=== PATIENT | male | born 1970 | race Caucasian/White ===

== ENCOUNTER 2025-06-04 14:44 | Outpatient (CLI) | payer MEDICAID ==
[2025-06-04] MEDS ORDERED: ALBUTEROL SULF 2.5 MG/0.5ML(0.5%) NEB SOLN ONE (15:07)
== END 2025-06-04 17:00 | disposition home or self-care (01) ==
LOC: XYW 14:44
PROVIDERS: ATTEND Internal Medicine Pulmonary Disease
DX: J44.9 Chronic obstructive pulmonary disease, unspecified (principal); R06.09 Other forms of dyspnea; R06.02 Shortness of breath
CPT/HCPCS: 94060; 94618; 94727; 94729